=== PATIENT | male | born 1955 | race Caucasian/White ===

== ENCOUNTER → 2021-09-16 | Outpatient (CLI) | payer OTHER, MEDICARE ==
[~2021-09-16] MED LIST: ALBU90OI INH; AMLO5; AMLO5 PO; ASPI81CH PO; ATOR20 PO; ATOR40TA; Androgel2.5 GM; CENTRUM SILVER1 EAC2 PO; CLARITIN10 MG; Coumadin5 MG PO; Depo-Testo100 MG/1 M IM; ERGO400 PO; HYDCHL25 PO; Hydrochlorothia25 MG; LISI20 PO; LORA10ER; Lopressor 50 mg50 MG PO; Loratadine10 MG PO; METF500 PO; METO50 PO; Metformin HCl500 MG; OMEP20ER PO; OMEPRAZOLE MAGN20 MG; Prinivil10 MG PO; SILD25T PO; TADA10TA PO; TORSE20 PO; UBID10 PO; XARELTO20 MG; XARELTO20 MG PO
== END ==
LOC: LAB 08:45 → LAB SHORT 08:45
DX: R30.0 Dysuria (principal)
CPT/HCPCS: 87086

== ENCOUNTER → 2021-12-15 | Outpatient (CLI) | payer BC, MEDICARE ==
[2021-12-15 13:30] LABS: Stool Occult Bld Immuno 1 Positive (NEGATIVE)
== END | disposition home or self-care (01) ==
LOC: LAB SHORT 07:20 → LAB 07:20 → LAB FUT 12-15 10:45
PROVIDERS: Family Medicine
DX: Z12.11 Encounter for screening for malignant neoplasm of colon (principal)
CPT/HCPCS: G0328